=== PATIENT | male | born 1975 | race Two or more races ===

== ENCOUNTER 2022-02-22 17:00 | Emergency (ER) | payer OTHER ==
[~2022-02-22] VITALS: Ht 190.5 cm; Wt 88.5 kg
[2022-02-22 18:10] LABS: PCO2 Venous 48.4 mmHg (38-42)
[2022-02-22 18:11] LABS: Base Excess Venous 4.9 mmol/L; Bicarbonate Venous 28.1 mmol/L (24.0-30.0)
[2022-02-22 18:18] LABS: BASOPHILS ABSOLUTE AUTO 0.02 K/mm3 (0.00-0.23); BASOPHILS PERCENT AUTO 0 % (0-2); EOSINOPHILS ABSOLUTE AUTO 0.06 K/mm3 (0.00-0.68); EOSINOPHILS PERCENT AUTO 1 % (0-6); Hematocrit 34.5 % (37.0-53.0); Hemoglobin 10.8 g/dL (13.5-17.5); IMMATURE GRAN ABSOLUTE AUTO 0.03 K/mm3 (0.00-0.10); IMMATURE GRAN PERCENT AUTO 0 % (0-1); LYMPHOCYTES ABSOLUTE AUTO 1.16 K/mm3 (0.84-5.20); LYMPHOCYTES PERCENT AUTO 16 % (21-46); MONOCYTES PERCENT AUTO 12 % (4-13); Mean Corpuscular HGB 26.9 pg (26.0-34.0); Mean Corpuscular HGB Conc 31.3 g/dL (31.5-36.5); Mean Corpuscular Volume 86 fL (80-100); Mean Platelet Volume 10.9 fL (9.1-12.4); NEUTROPHILS ABSOLUTE AUTO 5.06 K/mm3 (1.96-9.15); NEUTROPHILS PERCENT AUTO 70 % (41-73); Platelet Count 306 K/mm3 (150-400); RDW Coefficient Variation 18.2 % (11.7-14.2); RDW Standard Deviation 55.4 fL (35.1-46.3); Red Blood Cell Count 4.01 M/mm3 (4.30-5.90); White Blood Cell Count 7.23 K/mm3 (4.00-11.30)
[2022-02-22 19:02] LABS: Albumin, Blood 2.8 g/dL (3.4-5.0); Albumin/Globulin Ratio 0.8 (0.8-1.8); Bilirubin, Total 0.7 mg/dL (0.1-1.0); Bun/Creatinine Ratio 33.9 (12.0-20.0); Creatinine, Blood 0.35 mg/dL (0.60-1.20); Globulin, Blood 3.5 g/dL (2.2-4.0); Potassium, Blood 3.7 mmol/L (3.5-5.5); Total Protein, Blood 6.3 g/dL (6.4-8.2)
[2022-02-22] MEDS ORDERED: ASPI81CH PO (20:07)
[2022-02-22] MEDS ORDERED: FERSU300 PO (20:08)
[2022-02-22] MEDS ORDERED: GABA400 PO (20:08)
[2022-02-22] MEDS ORDERED: DULO60 PO (20:08)
[2022-02-22] MEDS ORDERED: ATOR20 PO (20:08)
[2022-02-22] MEDS ORDERED: GLIM2 PO (20:09)
[2022-02-22 20:10] LABS: Source, Urine Clean Catch
[2022-02-22] MEDS ORDERED: INSULANI SC (20:11)
[2022-02-22] MEDS ORDERED: METF500 PO ×2 (20:12→20:49)
[2022-02-22] MEDS ORDERED: Robaxin750 MG PO (20:12)
[2022-02-22] MEDS ORDERED: LISI20 PO (20:12)
[2022-02-22] MEDS ORDERED: OXYC10TA19 PO (20:13)
[2022-02-22] MEDS ORDERED: NORT25 PO (20:13)
[2022-02-22] MEDS ORDERED: PANT40 PO (20:13)
[2022-02-22 20:23] LABS: Bilirubin, Urine Neg (Neg); Blood, Urine Neg (Neg); Glucose Qualitative, Urine 4+ (Neg); Ketones, Urine 3+ (Neg); Leukocyte Esterase, Urine Neg (Neg); Nitrite, Urine Neg (Neg); Protein, Urine 2+ (Neg); Specific Gravity, Urine 1.025 (1.003-1.022); Urobilinogen, Urine 2+ (Normal)
[2022-02-22 20:30] LABS: Appearance, Urine Clear (Clear); Color, Urine Yellow (P-Yellow)
[2022-02-22 20:31] LABS: Bacteria Not Seen /hpf; Red Blood Cells, Urine Not Seen /hpf (0-2); Squamous Epithelial Cells Rare /hpf (Few); White Blood Cells, Urine Not Seen /hpf (0-5)
[2022-02-22] MEDS ORDERED: CEPH500 PO (20:49)
== END 2022-02-22 21:44 | disposition home or self-care (01) ==
LOC: ER 17:00
PROVIDERS: Emergency Medicine
DX: E86.0 Dehydration (principal); E11.65 Type 2 diabetes mellitus with hyperglycemia; E11.621 Type 2 diabetes mellitus with foot ulcer; L97.529 Non-pressure chronic ulcer of other part of left foot with unspecified severity; F17.200 Nicotine dependence, unspecified, uncomplicated; Z59.00 Homelessness unspecified; Z91.14 Patient's other noncompliance with medication regimen
CPT/HCPCS: 51701; 71045; 80053; 81001; 82010; 82803; 82947; 85025; 93005; 93010; 96360; 99285-25; J7030

== ENCOUNTER 2022-11-22 15:09 | Inpatient (IN) | payer MEDICARE, OTHER ==
[~2022-11-22] VITALS: Ht 193 cm; Wt 71.2 kg
[~2022-11-22 15:09] MED LIST: ASPI81CH PO; ATOR20 PO; B-1100 M1 PO; CEPH500 PO; DULO60 PO; FERSU300 PO; GABA400 PO; GLIM2 PO; INSULANI SC; LISI20 PO; METF500 PO; MORP30ER PO; NORT25 PO; OXYC10TA19 PO; PANT40 PO; Robaxin750 MG PO
[2022-11-22 15:40] LABS: Source, Urine Straight Cath
[2022-11-22 15:43] LABS: BASOPHILS ABSOLUTE AUTO 0.05 K/mm3 (0.00-0.23); BASOPHILS PERCENT AUTO 1 % (0-2); EOSINOPHILS PERCENT AUTO 1 % (0-6); Hematocrit 46.6 % (37.0-53.0); Hemoglobin 15.7 g/dL (13.5-17.5); IMMATURE GRAN ABSOLUTE AUTO 0.02 K/mm3 (0.00-0.10); IMMATURE GRAN PERCENT AUTO 0 % (0-1); LYMPHOCYTES ABSOLUTE AUTO 1.66 K/mm3 (0.84-5.20); LYMPHOCYTES PERCENT AUTO 23 % (21-46); MONOCYTES ABSOLUTE AUTO 0.45 K/mm3 (0.16-1.47); MONOCYTES PERCENT AUTO 6 % (4-13); Mean Corpuscular HGB 27.7 pg (26.0-34.0); Mean Corpuscular HGB Conc 33.7 g/dL (31.5-36.5); Mean Corpuscular Volume 82 fL (80-100); Mean Platelet Volume 9.6 fL (9.1-12.4); NEUTROPHILS ABSOLUTE AUTO 5.05 K/mm3 (1.96-9.15); NEUTROPHILS PERCENT AUTO 69 % (41-73); Platelet Count 247 K/mm3 (150-400); RDW Standard Deviation 45.1 fL (35.1-46.3); Red Blood Cell Count 5.67 M/mm3 (4.30-5.90); White Blood Cell Count 7.33 K/mm3 (4.00-11.30)
[2022-11-22 15:44] LABS: Appearance, Urine Clear (Clear); Bilirubin, Urine Neg (Neg); Blood, Urine 2+ (Neg); Color, Urine Yellow (P-Yellow); Glucose Qualitative, Urine 4+ (Neg); Ketones, Urine Neg (Neg); Leukocyte Esterase, Urine Neg (Neg); Nitrite, Urine Neg (Neg); Protein, Urine 1+ (Neg); Specific Gravity, Urine 1.015 (1.003-1.022); Urobilinogen, Urine NORM (Normal)
[2022-11-22 15:55] LABS: U Amphetamine Screen Not Detected; U Barbituate Screen Not Detected; U Benzodiazapine Screen Not Detected; U Buprenorphine Screen DETECTED; U Cannabinoids Screen Not Detected; U Cocaine Screen Not Detected; U Methadone Screen Not Detected; U Methamphetamine Screen Not Detected; U Opiates Screen Not Detected; U Oxycodone Screen Not Detected; U Phencyclidine Screen Not Detected; U Propoxyphene Screen Not Detected
[2022-11-22 16:01] LABS: Bacteria Rare /hpf; Squamous Epithelial Cells Not Seen /hpf (Few); White Blood Cells, Urine 0-2 /hpf (0-5)
[2022-11-22 16:13] LABS: Albumin, Blood 3.4 g/dL (3.4-5.0); Albumin/Globulin Ratio 0.7 (0.8-1.8); Bilirubin, Total 0.2 mg/dL (0.1-1.0); Bun/Creatinine Ratio 14.4 (12.0-20.0); Calcium, Blood 8.7 mg/dL (8.5-10.1); Creatinine, Blood 0.42 mg/dL (0.60-1.20); Globulin, Blood 4.7 g/dL (2.2-4.0); Potassium, Blood 4.2 mmol/L (3.5-5.5); Total Protein, Blood 8.1 g/dL (6.4-8.2)
[2022-11-22] MEDS ORDERED: GABAPENTIN600 MG PO (16:52)
[2022-11-22] MEDS ORDERED: BUPRENO-NALOX1 EAC2 SL (16:52)
[2022-11-22 17:09] LABS: CPK Creatine Kinase 211 U/L (39-308)
[2022-11-22] MEDS ORDERED: BACL10 PO (21:13)
[2022-11-23 04:24] VITALS: BP 188/109
--- NOTE | 2022-11-23 05:43 | NUR ---
PT IS A&O4, BEDREST, RA, PT CALLED NUMEROUS TIMES THROUGHOUT SHIFT, PRN HYDRALAZINE, AND PRN PAIN MEDICATION GIVEN PER OCT, CONTINUE POC
[2022-11-23 06:04] LABS: BASOPHILS ABSOLUTE AUTO 0.04 K/mm3 (0.00-0.23); BASOPHILS PERCENT AUTO 1 % (0-2); EOSINOPHILS ABSOLUTE AUTO 0.13 K/mm3 (0.00-0.68); EOSINOPHILS PERCENT AUTO 2 % (0-6); Hematocrit 44.2 % (37.0-53.0); Hemoglobin 14.8 g/dL (13.5-17.5); IMMATURE GRAN ABSOLUTE AUTO 0.01 K/mm3 (0.00-0.10); IMMATURE GRAN PERCENT AUTO 0 % (0-1); LYMPHOCYTES ABSOLUTE AUTO 1.77 K/mm3 (0.84-5.20); LYMPHOCYTES PERCENT AUTO 23 % (21-46); MONOCYTES PERCENT AUTO 8 % (4-13); Mean Corpuscular HGB 27.4 pg (26.0-34.0); Mean Corpuscular HGB Conc 33.5 g/dL (31.5-36.5); Mean Corpuscular Volume 82 fL (80-100); Mean Platelet Volume 10.1 fL (9.1-12.4); NEUTROPHILS PERCENT AUTO 67 % (41-73); Platelet Count 243 K/mm3 (150-400); RDW Standard Deviation 45.1 fL (35.1-46.3); White Blood Cell Count 7.75 K/mm3 (4.00-11.30)
[2022-11-23 06:35] LABS: Albumin, Blood 3.2 g/dL (3.4-5.0); Albumin/Globulin Ratio 0.7 (0.8-1.8); Bilirubin, Total 0.6 mg/dL (0.1-1.0); Bun/Creatinine Ratio 20.5 (12.0-20.0); Calcium, Blood 8.6 mg/dL (8.5-10.1); Creatinine, Blood 0.34 mg/dL (0.60-1.20); Globulin, Blood 4.3 g/dL (2.2-4.0); Magnesium, Blood 1.9 mg/dL (1.6-2.4); Potassium, Blood 3.6 mmol/L (3.5-5.5); Total Protein, Blood 7.5 g/dL (6.4-8.2)
[2022-11-23 07:29] VITALS: BP 172/104
[2022-11-23 09:28] LABS: Beta-hydroxybutyrate 3.2 mg/dL (0.2-2.8); Phosphorus, Blood 1.9 mg/dL (2.5-4.9)
[2022-11-23 15:45] VITALS: BP 171/87
--- NOTE | 2022-11-23 20:51 | NUR ---
SHIFT SUMMARY: PATIENT WAS SLIGHTLY ANXIOUS THIS MORNING AND HIS CIWA SCORE ENDED UP BEING 8. THIS NURSE GAVE THE PATIENT ONE LYBRIUM AND AFTER THAT NO CIWA SCORING WAS NEEDED TO BE DONE THE REST OF THE SHIFT. HIS PAIN WAS BETTER MANAGED WITH HIS HOME DOSING OF GABAPENTIN, BACLOFEN, AND THE PRN OXY. HE IS TOLERATING PO INTAKE AND IS VOIDING. HE IS A 2 PERSON ASSIST WITH STAND PIVIOTING FROM BED TO CHAIR. PATIENT REPORTED "THE RECLINER IS MUCH MORE COMFORTABLE!". PATIENT WAS ABLE TO WORK WITH PT TODAY. PATIENT CALLED APPROPRIATELY. PATIENT IS IN THE RECLINER WITH CALL LIGHT IN REACH.
[2022-11-24 05:01] LABS: BASOPHILS ABSOLUTE AUTO 0.02 K/mm3 (0.00-0.23); BASOPHILS PERCENT AUTO 0 % (0-2); EOSINOPHILS ABSOLUTE AUTO 0.15 K/mm3 (0.00-0.68); EOSINOPHILS PERCENT AUTO 3 % (0-6); Hematocrit 39.8 % (37.0-53.0); Hemoglobin 13.3 g/dL (13.5-17.5); IMMATURE GRAN ABSOLUTE AUTO 0.01 K/mm3 (0.00-0.10); IMMATURE GRAN PERCENT AUTO 0 % (0-1); LYMPHOCYTES ABSOLUTE AUTO 1.67 K/mm3 (0.84-5.20); LYMPHOCYTES PERCENT AUTO 35 % (21-46); MONOCYTES ABSOLUTE AUTO 0.36 K/mm3 (0.16-1.47); MONOCYTES PERCENT AUTO 8 % (4-13); Mean Corpuscular HGB 27.8 pg (26.0-34.0); Mean Corpuscular HGB Conc 33.4 g/dL (31.5-36.5); Mean Corpuscular Volume 83 fL (80-100); Mean Platelet Volume 10.5 fL (9.1-12.4); NEUTROPHILS ABSOLUTE AUTO 2.62 K/mm3 (1.96-9.15); NEUTROPHILS PERCENT AUTO 54 % (41-73); Platelet Count 177 K/mm3 (150-400); RDW Standard Deviation 45.6 fL (35.1-46.3); Red Blood Cell Count 4.78 M/mm3 (4.30-5.90); White Blood Cell Count 4.83 K/mm3 (4.00-11.30)
[2022-11-24 05:16] VITALS: BP 152/90
[2022-11-24 05:19] LABS: Albumin, Blood 2.7 g/dL (3.4-5.0); Albumin/Globulin Ratio 0.7 (0.8-1.8); Bilirubin, Total 0.4 mg/dL (0.1-1.0); Bun/Creatinine Ratio 25.7 (12.0-20.0); Calcium, Blood 8.7 mg/dL (8.5-10.1); Creatinine, Blood 0.43 mg/dL (0.60-1.20); Globulin, Blood 3.9 g/dL (2.2-4.0); Total Protein, Blood 6.6 g/dL (6.4-8.2)
[2022-11-24 07:27] VITALS: BP 155/91
[2022-11-24 16:13] VITALS: BP 159/91
--- NOTE | 2022-11-24 16:56 | NUR ---
SHIFT SUMMARY NO ACUTE CHANGES DURING SHIFT. PT ALERT AND ORIENTED, CALLS APPROPRIATELY. PT REMAINS ON RA, X 2 ASSIST TO CHAIR. CIWA OF 3 TODAY. PT MEDICATED WITH PRN PAIN MEDICATIONS X 2 WELL SCHEDULED MEDS. DRESSINGS TO LEGS REMOVED BY PT WHILE IN BED. WILL CONTINUE TO MONITOR. CALL LIGHT WITHIN REACH.
[2022-11-24 19:25] VITALS: BP 147/87
[2022-11-25 04:46] LABS: BASOPHILS ABSOLUTE AUTO 0.03 K/mm3 (0.00-0.23); BASOPHILS PERCENT AUTO 1 % (0-2); EOSINOPHILS ABSOLUTE AUTO 0.19 K/mm3 (0.00-0.68); EOSINOPHILS PERCENT AUTO 4 % (0-6); Hematocrit 39.1 % (37.0-53.0); Hemoglobin 12.8 g/dL (13.5-17.5); IMMATURE GRAN ABSOLUTE AUTO 0.01 K/mm3 (0.00-0.10); IMMATURE GRAN PERCENT AUTO 0 % (0-1); LYMPHOCYTES ABSOLUTE AUTO 1.77 K/mm3 (0.84-5.20); LYMPHOCYTES PERCENT AUTO 38 % (21-46); MONOCYTES ABSOLUTE AUTO 0.42 K/mm3 (0.16-1.47); MONOCYTES PERCENT AUTO 9 % (4-13); Mean Corpuscular HGB 27.6 pg (26.0-34.0); Mean Corpuscular HGB Conc 32.7 g/dL (31.5-36.5); Mean Corpuscular Volume 84 fL (80-100); NEUTROPHILS ABSOLUTE AUTO 2.21 K/mm3 (1.96-9.15); NEUTROPHILS PERCENT AUTO 48 % (41-73); Platelet Count 147 K/mm3 (150-400); RDW Coefficient Variation 14.9 % (11.7-14.2); RDW Standard Deviation 45.2 fL (35.1-46.3); Red Blood Cell Count 4.64 M/mm3 (4.30-5.90); White Blood Cell Count 4.63 K/mm3 (4.00-11.30)
[2022-11-25 05:09] LABS: Magnesium, Blood 1.7 mg/dL (1.6-2.4)
[2022-11-25 05:13] LABS: Alanine Aminotransfer (ALT/SGP 21 U/L (12-78); Albumin, Blood 2.6 g/dL (3.4-5.0); Albumin/Globulin Ratio 0.7 (0.8-1.8); Alk Phos 91 U/L (50-136); Anion Gap Unable to Calculate mmol/L (6-16); Aspartate Aminotrans (AST/SGOT 15 U/L (12-37); Bilirubin, Total 0.4 mg/dL (0.1-1.0); Blood Urea Nitrogen 13 mg/dL (8-24); Bun/Creatinine Ratio 31.8 (12.0-20.0); CO2, Blood 28 mmol/L (21-32); Calcium, Blood 8.7 mg/dL (8.5-10.1); Chloride, Blood 108 mmol/L (98-108); Creatinine, Blood 0.41 mg/dL (0.60-1.20); Globulin, Blood 3.7 g/dL (2.2-4.0); Glomerular Filtration Rate 136 (60-); Glucose, Blood 188 mg/dL (70-99); Phosphorus, Blood 2.9 mg/dL (2.5-4.9); Sodium, Blood 135 mmol/L (136-145); Total Protein, Blood 6.3 g/dL (6.4-8.2)
--- NOTE | 2022-11-25 05:52 | NUR ---
PT IS A&O4, BESREST USES URINAL AND BEDPAN, RA, PT CONTINUES TO USE CALL LIGHT IN EXCESS THROUGHT SHIFT, HAD 3 LARGE BM'S THIS SHIFT, PRN PAIN MEDICATION GIVEN PER MAR, CONTINUE POC
[2022-11-25 07:36] VITALS: BP 157/98
[2022-11-25 15:13] VITALS: BP 171/104
--- NOTE | 2022-11-25 17:08 | NUR ---
SHIFT SUMMARY: NO NEW ACUTE CHANGES IN PATIENT CONDITION THIS SHIFT. PLEASANT AND COOPERATIVE c CARE. PATIENT USES CALL LIGHT CONSTANTLY AND NOT COMPLIANT c DIABETIC DIET. ASKING FOR SNACKS T/O SHIFT. THIS RN EDUCATE PATIENT c DIABETIC DIET T/O SHIFT. PATIENT STATED UNDERSTANDING BUT CONTINUES TO ASKED FOR SNACKS. PATIENT BS RANGES [phone] THIS SHIFT. MEDICATED INSULIN COVERAGE PER SLIDING SCALE. PATIENT RECEIVED BEDBATH AND LINEN CHANGED THIS SHIFT. MIPELEX DRESSING CHANGED TO COCCYX, BILAT KNEES, BILAT HEELS AND R SIDE INNER FOOT. PATIENT IS CONTINENCE OF URINE AND STOOL. USES URINAL AND BEDPAN IN BED. PATIENT DECLINED TO SIT-UP IN THE RECLINER CHAIR FOR BREAKFAST AND LUNCH, BUT AGREED TO SIT-UP FOR DINNER. IV TO L HAND INFUSING NS AT 125 MLS/HR. CALL LIGHT IN REACH.
[2022-11-25 18:08] VITALS: BP 152/107
--- NOTE | 2022-11-25 18:12 | NUR ---
NOTES: PATIENT BP AT AROUND 1500'S WAS 171/104 c HR OF 82 BPM. MEDICATED c 20 MG IV HYDRALAZINE. BP WAS RECHECKED 152/107 c HR OF 107 BPM. PATIENT REPORTS CONSTANT PAIN 8/10 TO BLE'S. MEDICATED c PRN PO OXYCODONE X2 THIS SHIFT. PATIENT REPORTS PAIN DOWN TO 4/10.
[2022-11-25 19:46] VITALS: BP 157/96
--- NOTE | 2022-11-26 04:28 | NUR ---
SHIFT SUMMARY - NO ACUTE CHANGES THROUGHOUT THIS SHIFT. PT CONTINUED TO ASK FOR FOOD/BROTH THROUGHOUT THE NIGHT - EDUCATED ON DIABETIC DIET, AND ELEVATED BLOOD SUGARS. PT HAS BEEN MORE COMPLIANT THIS AM, NOT ASKING FOR FOOD/SNACKS. PT CONTINUES TO COMPLAIN OF PAIN, LIDOCAINE PATCHES PLACED ON BILATERAL ANKLES PER ORDER (NEW ORDER THIS SHIFT.) MEDICATED PER EMAR. REPORT FROM DAY SHIFT RN, IS DAY SHIFT DECLINED INCREASE IN PAIN MEDICATION. FLUIDS AT BEDSIDE. CALL LIGHT WITHIN REACH. BED IN LOW POSITION. WILL CONTINUE TO MONITOR UNTIL AM SHIFT CHANGE.
[2022-11-26 05:47] VITALS: BP 173/98
[2022-11-26 06:08] VITALS: BP 153/85
[2022-11-26 07:24] VITALS: BP 170/97
[2022-11-26 15:07] VITALS: BP 126/84
--- NOTE | 2022-11-26 18:22 | NUR ---
PATIENT A/OX4, PLEASANT WITH STAFF. UPSET TODAY D/T PAIN MANAGEMENT AND MEDICATION REGIMEN AND WAS WANTING TO LEAVE AMA. DR. FRANCO AT BEDSIDE AND DISCUSSED PLAN EXTENSIVELY WITH PATIENT. OXYCODONE D/C'D AND PATIENT WILL START SUBOXONE TOMORROW. PATIENT NOT FOLLOWING ADA DIET AND ASKS FREQUENTLY FOR SNACKS IN BETWEEN MEALS AND EXTRA FOOD WITH MEALS. DR FRANCO AWARE. ACHS BLOOD SUGARS, PATIENT 337 AT DINNER AND 8 UNITS GIVEN TO TREAT. PATIENT HAS MULTIPLE SKIN ISSUES WITH FOAM DRESSINGS COVERING. PATIENT HAS GOOD BED MOBILITY AND ENCOURAGED AND ASSISTED TO REPOSITION AT LEAST Q2 HOURS.
[2022-11-26 19:33] VITALS: BP 156/88
[2022-11-27 04:19] VITALS: BP 166/102
--- NOTE | 2022-11-27 05:30 | NUR ---
SUMMARY: PATIENT TRANSFERED OVERNIGHT FROM [facility]. AOX4. WEAK. VSS. PATIENT AGITATED THAT HE WAS NOT ABLE TO TAKE PAIN MEDICATIONS. PATIENT CONSTANTLY ASKED FOR SNACKS. SET LIMITS TO HELP PATIENT ADHEAR TO DIET AND BETTER MANAGE GLUCOSE LEVELS. PROVIDED EDUCATION ON ADA DIET WELL. PATIENT WAS ABLE TO USE BED BALTAZAR FOR BOWEL MOVEMENT THIS MORNING. VIODS IN URINAL. IV FLUIDS RUNING AT 125 mL/hr. BED ALARM NEWSPAPER STUFFER LIGHT IN REACH. WOUND CLEANSED ON R HEEL AND DRESSING REPLACED PATIENT REMOVED DRESSINGS. GAVE PRN LIDOCAINE PATCHES.
[2022-11-27 05:43] VITALS: BP 163/89
[2022-11-27 06:01] LABS: BASOPHILS ABSOLUTE AUTO 0.02 K/mm3 (0.00-0.23); BASOPHILS PERCENT AUTO 0 % (0-2); EOSINOPHILS ABSOLUTE AUTO 0.12 K/mm3 (0.00-0.68); EOSINOPHILS PERCENT AUTO 2 % (0-6); Hematocrit 38.2 % (37.0-53.0); Hemoglobin 12.6 g/dL (13.5-17.5); IMMATURE GRAN ABSOLUTE AUTO 0.02 K/mm3 (0.00-0.10); IMMATURE GRAN PERCENT AUTO 0 % (0-1); LYMPHOCYTES ABSOLUTE AUTO 1.71 K/mm3 (0.84-5.20); LYMPHOCYTES PERCENT AUTO 32 % (21-46); MONOCYTES ABSOLUTE AUTO 0.66 K/mm3 (0.16-1.47); MONOCYTES PERCENT AUTO 12 % (4-13); Mean Corpuscular HGB 27.4 pg (26.0-34.0); Mean Corpuscular Volume 83 fL (80-100); Mean Platelet Volume 9.5 fL (9.1-12.4); NEUTROPHILS ABSOLUTE AUTO 2.84 K/mm3 (1.96-9.15); NEUTROPHILS PERCENT AUTO 53 % (41-73); Platelet Count 138 K/mm3 (150-400); RDW Coefficient Variation 14.8 % (11.7-14.2); RDW Standard Deviation 45.2 fL (35.1-46.3); White Blood Cell Count 5.37 K/mm3 (4.00-11.30)
[2022-11-27 06:16] VITALS: BP 179/108
[2022-11-27 06:21] LABS: Albumin, Blood 2.8 g/dL (3.4-5.0); Albumin/Globulin Ratio 0.8 (0.8-1.8); Bilirubin, Total 0.4 mg/dL (0.1-1.0); Bun/Creatinine Ratio 29.5 (12.0-20.0); Calcium, Blood 8.1 mg/dL (8.5-10.1); Creatinine, Blood 0.41 mg/dL (0.60-1.20); Globulin, Blood 3.5 g/dL (2.2-4.0); Magnesium, Blood 1.6 mg/dL (1.6-2.4); Phosphorus, Blood 2.4 mg/dL (2.5-4.9); Potassium, Blood 3.4 mmol/L (3.5-5.5); Total Protein, Blood 6.3 g/dL (6.4-8.2)
[2022-11-27 07:21] VITALS: BP 178/97
--- NOTE | 2022-11-27 09:29 | NUR ---
PT ASSESSED BY DR. FRANCO, PT REQUESTED TO BE PLACED ONREGULAR DIET. DR. FRANCO GAVE VERBAL ORDER FOR REGULAR DIET.
[2022-11-27 15:52] VITALS: BP 118/83
--- NOTE | 2022-11-27 17:36 | NUR ---
SHIFT SUMMARY: PT A&O X4, PLEASANT, HAPPY AND ABLE TO MAKES NEEDS KNOWN. PT IV FLUIDS DC'D AND IV MEDICATION CHANGED TO PO. PT DIET CHANGE FROM ADA/DIAB/CONS CARB TO REGULAR DIET. DIETARY CONSULT PLACED FOR PT EDUCATION WITH MEALS AND FLUIDS. PT EVALUATED WITH PT, PT BED ALARM TURN OFF AND PT CAN DANGLE AT BEDSIDE INDEPENDANTLY. PT TRANSFERS FROM BED TO CHAIR WITH 1 PERSON PIVOT WITH FWW INTO CHAIR FOR MEALS. PT HAD MODERATE PAIN, RECVIED SCHEDULED PAIN MEDICATION PER EMAR PROTOCOL. PT IN BED WITH CALL LIGHT WITHIN REACH.
[2022-11-27 19:42] VITALS: BP 134/79
--- NOTE | 2022-11-28 03:27 | NUR ---
REGIONAL TRANSPORTATION MANAGER SUMMARY HR 103, OTHERWISE VSS. CBG AT HS WAS 316, INSULIN GIVEN. COOPERATIVE WITH CARE. DRESSINGS INTACT. SEEMS MORE RECEPTIVE OF CARE - I.E. COOPERATIVE WITH DIETARY RESTRICTIONS, THAN NOTED WITH PREVIOUS NIGHTS. HAS BEEN RESTING QUIETLY WITH FEW INTERRUPTIONS. CALL LIGHT IN REACH. WILL CONTINUE TO MONITOR.
[2022-11-28 04:12] VITALS: BP 140/86
[2022-11-28 06:05] LABS: Albumin, Blood 2.6 g/dL (3.4-5.0); Anion Gap 0 mmol/L (6-16); Blood Urea Nitrogen 19 mg/dL (8-24); Bun/Creatinine Ratio 41.8 (12.0-20.0); CO2, Blood 25 mmol/L (21-32); Calcium, Blood 8.3 mg/dL (8.5-10.1); Chloride, Blood 105 mmol/L (98-108); Creatinine, Blood 0.46 mg/dL (0.60-1.20); Glomerular Filtration Rate 131 (60-); Glucose, Blood 259 mg/dL (70-99); Phosphorus, Blood 3.1 mg/dL (2.5-4.9); Sodium, Blood 130 mmol/L (136-145)
--- NOTE | 2022-11-28 07:16 | NUR ---
ASSUMED CARE: PT RESTING IN BED AT THIS TIME. ALERT AND ORIENTED. TALKING TO STAFF DURING REPORT. DENIES NEEDS OR CONCERNS.
[2022-11-28 08:16] VITALS: BP 158/94
[2022-11-28 15:13] VITALS: BP 103/80
--- NOTE | 2022-11-28 18:00 | NUR ---
SHIFT SUMMARY: CARE MANAGEMENT STATES THAT PT'S EQUIPMENT IS READY FOR DELIVERY. SHE SPOKE WITH PT REGARDING THIS. AWAITING FINALIZED DISCHARGE PLANS. PT MEDICATED FOR PAIN PER ORDERS AND ABLE. UP TO CHAIR THIS SHIFT. NO ACUTE NEEDS OR CONCERNS AT THIS TIME.
[2022-11-28 19:21] VITALS: BP 128/83
[2022-11-29 03:02] VITALS: BP 118/73
--- NOTE | 2022-11-29 05:58 | NUR ---
SHIFT SUMMARY PATIENT HAD NO ACUTE CHANGES. AXOX 4 AND ONE ASSIST TO BSC. USES URINAL IN BED INDEPENDENTLY. PIV REMAINS INTACT. CBG 277. DENIES CHEST PAIN, SOB, AND N/V. MEPILEX DRESSINGS INTACT. REPORTED BLE PAIN AND REFUSED LIDOCAINE PATCHES AND TYLENOL. PATIENT BECOMING AGITATED. CALL LIGHT IN REACH. BED IN LOWEST POSITION. WILL CONTINUE TO MONITOR UNTIL DAY SHIFT NURSE ASSUMES CARE.
[2022-11-29 07:13] VITALS: BP 143/89
[2022-11-29] MEDS ORDERED: MELATONIN 5 MG1 EACH PO (14:52)
[2022-11-29] MEDS ORDERED: HUMALOG KW100 UNIT/1 SC (14:55)
--- NOTE | 2022-11-29 17:17 | NUR ---
NURSING SUMMARY FOR DAY SHIFT INTRODUCED TO THE PATIENT AND COMPLETED INITIAL ASSESSMENT AND MEDPASS. DURING MEDPASS THE PATIENT APPEARED TO BE IN A REASONABLE AMOUNT OF DISCOMFORT. I ASSESSED HIS PAIN AND MANAGED IT WITH THE ADMINISTRATION OF GABAPENTIN AND REASSESSED HIS PAIN FOLLOWING AN HOUR TO DETERMIN THE EFFECTIVENESS OF ADMINISTRATION. THE PATIENT SEEMS TO HAVE DIFFICULTIES WITH PERSONAL HYGIENE. THE PATIENT SEEMS TO NOT UNDERSTAND THE CORRECT MANAGEMENTOF DIABETES AND BLOOD SUGAR. THE PATIENT HAD SEVERAL BLOOD SUGARS THROUGHT THE DAY AND HIS HYPERGLYCEMIA WAS TREATED VIA HUMALOG AND GLARGINE. I WOULD RECOMMEND THAT MORE EDUCATION AND BETTER EXPLANATION OF DIET AND MANAGEMENT OF BLOOD SUGAR REGULATION BE ADMINISTERED. HE WAS PREPARED TO DISCHARGE TO HOME BUT UNFORTUNATELY THE TRANSPORT SERVICE WAS UNABLE TO COMPLET HIS TRANSFER AND WILL RETURN IN THE MORNING. A RESULT HE WILL DISCHARGE IN THE MORNING. THE PATIENT DID DESCRIBE THAT HE WAS CONCERNED THAT HE WOULD NOT HAVE FOOD WHEN HE RETURNED HOME. PERHABS A CONVERSATION ABOUT RESOURSES WOULD BE HELPFUL IN HIS CIRCUMSTANCE.
[2022-11-29 19:31] VITALS: BP 135/84
[2022-11-30 03:46] VITALS: BP 121/81
--- NOTE | 2022-11-30 04:08 | NUR ---
SHIFT SUMMARY ADMITTED FOR ALCOHOLIC KETOACIDOSIS. FULL CODE. PLAN IS FOR DC HOME W[facility]HH [facility]ORN[facility] ACH[facility] CBG'S, HIGH SS. A&O X3. HE WAS FOUND DOWN. HX OF ETOH, NONCOMPLIANCE, GASTRIC BYPASS, CHRONIC PAIN RX ABUSE. PT DEMANDS TO CONTINUOUSLY EAT THROUGHOUT SHIFT, IRRESPECTIVE OF DIET ORDERS OR CBG RESULTS.
[2022-11-30 07:42] VITALS: BP 129/84
== END 2022-11-30 12:03 | disposition home or self-care (01) | DRG 637 ==
LOC: ER 15:09 → MEDS 18:49
PROVIDERS: Family Medicine; Internal Medicine; Student in an Organized Health Care Education/Training Program; ADMIT Student in an Organized Health Care Education/Training Program
DX: E11.10 Type 2 diabetes mellitus with ketoacidosis without coma (principal); G92.8 Other toxic encephalopathy; F10.239 Alcohol dependence with withdrawal, unspecified; F11.20 Opioid dependence, uncomplicated; T40.601A Poisoning by unspecified narcotics, accidental (unintentional), initial encounter; G89.29 Other chronic pain; T73.0XXA Starvation, initial encounter; M79.662 Pain in left lower leg; M79.661 Pain in right lower leg; I10 Essential (primary) hypertension; D50.9 Iron deficiency anemia, unspecified; F32.A Depression, unspecified; K21.9 Gastro-esophageal reflux disease without esophagitis; E78.5 Hyperlipidemia, unspecified; F17.210 Nicotine dependence, cigarettes, uncomplicated; Y90.8 Blood alcohol level of 240 mg/100 ml or more; Z79.82 Long term (current) use of aspirin; Z98.890 Other specified postprocedural states; Z79.84 Long term (current) use of oral hypoglycemic drugs; Z99.3 Dependence on wheelchair; Z91.199 Patient's noncompliance with other medical treatment and regimen due to unspecified reason; Z79.4 Long term (current) use of insulin; Z79.899 Other long term (current) drug therapy; Z71.41 Alcohol abuse counseling and surveillance of alcoholic; Z98.84 Bariatric surgery status; Z79.02 Long term (current) use of antithrombotics/antiplatelets
CPT/HCPCS: 36415; 70450; 71045; 80053; 80069; 81001; 82010; 82550; 82947; 83036; 83605; 83690; 83735; 84100; 84145; 85025; 87040; 93005; 93010; 93922; 96361; 96374; 97110; 97112; 97162; 97530; 99285-25; A9270; G0480; J0360; J0572; J0690; J1650; J1815; J3411; J7030; J7040; J7060

== ENCOUNTER 2023-03-15 23:49 | Emergency (ER) | payer MEDICARE, OTHER ==
[~2023-03-15] VITALS: Ht 188 cm; Wt 83.9 kg
[~2023-03-15 23:49] MED LIST changes: +BACL10 PO; +BUPRENO-NALOX1 EAC2 SL; +GABAPENTIN600 MG PO; +HUMALOG KW100 UNIT/1 SC; +MELATONIN 5 MG1 EACH PO
[2023-03-16 00:03] VITALS: BP 110/65
== END 2023-03-16 02:44 | disposition home or self-care (01) ==
LOC: ER 23:49
DX: F10.229 Alcohol dependence with intoxication, unspecified (principal); E11.65 Type 2 diabetes mellitus with hyperglycemia; S91.104A Unspecified open wound of right lesser toe(s) without damage to nail, initial encounter; E78.5 Hyperlipidemia, unspecified; F32.A Depression, unspecified; I10 Essential (primary) hypertension; F17.210 Nicotine dependence, cigarettes, uncomplicated; G89.29 Other chronic pain; F11.20 Opioid dependence, uncomplicated; Z79.899 Other long term (current) drug therapy; Z79.84 Long term (current) use of oral hypoglycemic drugs; Z79.4 Long term (current) use of insulin; X58.XXXA Exposure to other specified factors, initial encounter
CPT/HCPCS: 82947; 99283-25